=== PATIENT | male | born 1940 | race Caucasian/White ===

== ENCOUNTER → 2018-03-09 | Outpatient (CLI) | payer MEDICARE, OTHER ==
--- NOTE | 2018-03-10 08:42 | Diagnostic Imaging Report ---
ADDENDUM #1 Comparison MRI lumbar spine 05/23/2015. IMPRESSION: Moderate to severe canal stenosis and moderate left foraminal narrowing at L3-L4 secondary to degenerative changes and posterior epidural lipomatosis, mildly progressed. Moderate degenerative canal stenosis and moderate bilateral foraminal narrowing at L1-L2. Posterior epidural lipomatosis at this levels contribute to the canal stenosis, mildly progressed. Moderate degenerative canal stenosis and moderate left foraminal narrowing at L4-L5, stable. Diffuse disc degeneration throughout the lumbar spine and lower thoracic spine. Other degenerative changes as described above. Signed by: DR Guero Pope M.D. on 03/10/2018 9:08 AM ORIGINAL REPORT History: Low back pain Comparison studies: None Technique: Sagittal, coronal and axial T2 , sagittal T1 and IR, axial spin density oblique. Intravenous contrast: None Findings: Number of lumbar vertebral bodies:5. Transitional vertebra at the lower lumbar spine. Alignment: Straightening of the lumbar spine lordosis. Mild grade 1 anterolisthesis of L4 over L5.Mild dextroscoliosis centered at L3. Soft tissues: No T2 hyperintense inflammatory changes. Paraspinal muscles: Mild fatty infiltration of the paraspinal musculature secondary to atrophy. Lower thoracic cord:Normal in signal and morphology. The tip of the conus is at L1. Cauda equina: No masses. No arachnoiditis. Vertebrae: Normal in height and signal intensity. No compression fractures, infection or neoplasm. Degenerative changes: L1-L2: Disc degeneration with loss of T2 signal and decreased intervertebral space. Endplate irregularities with minimal edema signal. Mild diffuse disc bulge, posterior epidural lipomatosis, mild facet hypertrophy and ligamentum flavum thickening results in moderate canal stenosis and moderate bilateral foraminal narrowing. L2-L3: Disc degeneration with loss of T2 signal. Diffuse disc bulge, mild facet hypertrophy and ligamentum flavum thickening results in mild canal stenosis and mild bilateral foraminal narrowing. L3-L4: Disc degeneration with loss of T2 signal and decreased intervertebral space. Small central annular fissure. Diffuse disc bulge, posterior epidural lipomatosis, moderate facet hypertrophy and ligamentum flavum thickening results in moderate to severe canal stenosis, moderate left and mild right foraminal narrowing. Trace of fluid of the bilateral facet joints secondary to synovitis. L4-L5: Disc degeneration with loss of T2 signal and decreased intervertebral space. Diffuse disc bulge, moderate facet hypertrophy and ligamentum flavum thickening results in moderate canal stenosis, narrowing of the bilateral subarticular recesses, mild right and moderate left foraminal narrowing. L5-S1: Fused intervertebral disc. Mild facet hypertrophy with patent canal and foramina. Additional findings: None IMPRESSION: Moderate to severe canal stenosis and moderate left foraminal narrowing at L3-L4 secondary to degenerative changes and posterior epidural lipomatosis. Moderate degenerative canal stenosis and moderate bilateral foraminal narrowing at L1-L2. Posterior epidural lipomatosis at this levels contribute to the canal stenosis. Moderate degenerative canal stenosis and moderate left foraminal narrowing at L4-L5. Diffuse disc degeneration and other degenerative changes as described above. Signed by: DR Guero Pope M.D. on 03/10/2018 8:38 AM
--- NOTE | 2018-03-10 09:01 | Diagnostic Imaging Report ---
History: Neck pain Comparison studies: MRI of the cervical spine 11/07/2016, 05/23/2015 and 06/15/2014 Technique: Sagittal T1, T2 and IR, axial T2 and axial gradient echo Intravenous contrast: None Findings: Alignment: Reversal the usual cervical lordotic curvature centered at C4-C5, unchanged. Cervicomedullary junction: No abnormalities. Patent foramen magnum. Soft tissues: No T2 hyperintense inflammatory changes. Spinal cord: Normal in size and signal from the foramen magnum through T3 Vertebrae: No fractures, infection or neoplasm. Degenerative changes: C2-C3: Mildly degenerated disc with loss of T2 signal. Left uncinate process hypertrophy and facet hypertrophy results in no significant canal stenosis and mild left foraminal narrowing, stable. C3-C4: Disc degeneration with decreased intervertebral space. Diffuse disc osteophyte complex, bilateral uncinate process hypertrophy and facet hypertrophy results in mild canal stenosis and moderate bilateral foraminal narrowing, stable. C4-C5: Disc degeneration with decreased intervertebral space. Diffuse disc osteophyte complex, ligamentum flavum thickening, uncinate process hypertrophy and facet hypertrophy results in moderate canal stenosis, severe right and moderate left foraminal narrowing, stable from previous examination. C5-C6: The disc space is fused. Patent canal. Severe right and moderate left foraminal stenosis due to uncovertebral facet arthrosis, stable. C6-C7: Disc degeneration with decreased intervertebral space. Diffuse disc osteophyte complex, bilateral uncinate process hypertrophy and facet hypertrophy results in mild canal stenosis and moderate bilateral foraminal, stable. C7-T1: No abnormalities. IMPRESSION: 1. No significant change compared to previous MRI cervical spine 04/09/2017. 2. Moderate degenerative bilateral foraminal narrowing at C3-4 and C6-7, stable. 3. Moderate degenerative canal stenosis, severe right and moderate left foraminal narrowing at C4-5, stable. 4. Diffuse disc degeneration and other degenerative changes, stable from previous. Signed by: DR Guero Pope M.D. on 03/10/2018 8:57 AM
== END ==
LOC: MRI 15:29
PROVIDERS: ATTEND Emergency Medicine
DX: M54.12 Radiculopathy, cervical region (principal); M54.16 Radiculopathy, lumbar region
CPT/HCPCS: 72141; 72148

== ENCOUNTER → 2019-08-04 | Outpatient (CLI) | payer MEDICARE, OTHER ==
--- NOTE | 2019-08-04 16:23 | Diagnostic Imaging Report ---
TECHNIQUE: Magnetic resonance imaging of the LEFT ANKLE was performed WITHOUT injected contrast. COMPARISON: None available. HISTORY: Ankle pain FINDINGS: Alignment: Hindfoot valgus with pes planus and forefoot abduction. Subfibular impingement. LIGAMENTS: Medial Complex: Intact Lateral Complex: Intact TENDONS: Medial: Tendinopathy of the posterior tibial tendon. Flexor tendons otherwise intact. Lateral: Peroneal tenosynovitis. Tendons intact. Anterior: Anterior tibial and extensor tendons intact. Achilles: Achilles tendon intact. BONES: No acute fracture or osteonecrosis. JOINTS: Cartilage: Subchondral cystic change of the ankle, subtalar, and talonavicular joints. Other: Fluid within the joints is within physiologic limits. SOFT TISSUES: Otherwise, unremarkable. 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 Posterior tibial tendinopathy. Signed by: Dr. Edouard Olivo M.D. on 08/04/2019 4:19 PM
== END ==
LOC: MRI 14:48
PROVIDERS: ATTEND Emergency Medicine
DX: M25.572 Pain in left ankle and joints of left foot (principal)

== ENCOUNTER → 2021-03-21 | Outpatient (CLI) | payer MEDICARE, OTHER ==
[~2021-03-21] MED LIST: IOPAMIDOL 370 MG/ML 200 ML INFUS..BTL INJ ONE; SODIUM CHLORIDE 0.9% 500ML 500 ML ONE; SODIUM CHLORIDE 0.9% 50ML 50 ML ONE
[2021-03-21 17:07] LABS: CREATININE, SERUM 1.44 mg/dL (0.72-1.25)
== END ==
LOC: CT 16:22
PROVIDERS: ATTEND Emergency Medicine
DX: R10.9 Unspecified abdominal pain (principal)
CPT/HCPCS: 36415; 74177; 82565; 84520; 96360; J7040; Q9967

== ENCOUNTER → 2022-02-22 | Outpatient (CLI) | payer MEDICARE, OTHER | LOC: MRI 14:39 | PROVIDERS: ATTEND Obstetrics & Gynecology Reproductive Endocrinology | DX: M54.16 Radiculopathy, lumbar region (principal) | CPT/HCPCS: 72148 ==

== ENCOUNTER → 2022-08-22 | Day surgery (SDC) | payer MEDICARE, OTHER ==
[2022-08-21 15:30] LABS: BASOPHILS % 0.6 % (0.0-1.0); EOSINOPHILS # (AUTO) 0.5 (0.0-0.4); EOSINOPHILS % 7.1 % (0.0-6.0); HEMATOCRIT 37.4 % (38.2-49.6); HEMOGLOBIN 12.3 g/dL (14.0-18.0); LYMPHOCYTES # (AUTO) 2.3 (1.0-3.2); LYMPHOCYTES % 33.3 % (18.0-39.1); MEAN CORPUSCULAR HEMOGLOBIN 34.2 pg (28-32); MEAN CORPUSCULAR HGB CONC 32.9 g/dL (31-35); MEAN CORPUSCULAR VOLUME 103.9 fL (81-99); MONOCYTES # (AUTO) 0.8 (0.2-0.8); MONOCYTES % 11.7 % (4.4-11.3); NEUTROPHILS # (AUTO) 3.3 (2.1-6.9); NEUTROPHILS % 46.9 % (38.7-80.0); PLATELET COUNT 212 x10e3/uL (140-360); RED CELL DISTRIBUTION WIDTH 12.7 % (11.7-14.4)
[2022-08-21 15:41] LABS: INR 0.86; PROTHROMBIN TIME 12.5 seconds (11.9-14.5)
[2022-08-21 15:42] LABS: PARTIAL THROMBOPLASTIN TIME 25.7 seconds (23.8-35.5)
[2022-08-21 15:49] LABS: ANION GAP 15.4 mmol/L (8-16); CALCIUM 8.9 mg/dL (8.4-10.2); CREATININE, SERUM 1.32 mg/dL (0.72-1.25); POTASSIUM 4.4 mmol/L (3.5-5.1)
[~2022-08-22] MED LIST changes: +ALLOPURINOL100 MG PO; +ASPIRIN81 MG PO; +ATORVASTATIN CA20 MG PO; +BUPIVACAINE HCL 0.5% INJ 30 ML VIAL INJ ONE; +FAMOTIDINE40 MG PO; +FINASTERIDE5 MG PO; +FLOMAX0.4 MG PO; +HYDROCODON-ACE1 EA12 PO; -IOPAMIDOL 370 MG/ML 200 ML INFUS..BTL INJ ONE; +ISOSORBIDE MONO30 MG PO; +KLOR-CON M2020 MEQ PO; +LEVOTHYROXINE75 MCG PO; +LIDOCAINE HCL 2% LOCAL INJ 5 ML SDV VIAL INJ ONE; +LYRICA75 MG PO; +MELOXICAM7.5 MG PO; +METOPROLOL TART25 MG PO; +POVIDONE IODINE 0.05% 0.05 % ML PO ONE; +PROPOFOL IV EMULSION 10 MG/ML 20 ML VIAL IV ONE; +SEVOFLURANE INHAL SOLN 250 ML PEN BTL INH ONE; -SODIUM CHLORIDE 0.9% 500ML 500 ML ONE; -SODIUM CHLORIDE 0.9% 50ML 50 ML ONE; +TIZANIDINE HCL2 MG PO
[2022-08-22 09:55] VITALS: BP 126/64
== END | disposition home or self-care (01) ==
LOC: OR 07:09
PROVIDERS: ATTEND Neurological Surgery
DX: G56.01 Carpal tunnel syndrome, right upper limb (principal); I10 Essential (primary) hypertension; I25.10 Atherosclerotic heart disease of native coronary artery without angina pectoris; N40.0 Benign prostatic hyperplasia without lower urinary tract symptoms; E11.9 Type 2 diabetes mellitus without complications; R00.1 Bradycardia, unspecified; E03.9 Hypothyroidism, unspecified; M19.90 Unspecified osteoarthritis, unspecified site; Z71.3 Dietary counseling and surveillance; Z71.82 Exercise counseling; Z01.810 Encounter for preprocedural cardiovascular examination; Z01.812 Encounter for preprocedural laboratory examination; Z01.818 Encounter for other preprocedural examination; Z79.02 Long term (current) use of antithrombotics/antiplatelets; Z79.82 Long term (current) use of aspirin; Z79.1 Long term (current) use of non-steroidal anti-inflammatories (NSAID); Z79.899 Other long term (current) drug therapy; Z68.37 Body mass index [BMI] 37.0-37.9, adult; Z86.718 Personal history of other venous thrombosis and embolism
CPT/HCPCS: 36415; 64721; 71046; 80048; 85025; 85610; 85730; 93005; J0690; J2001; J2704

== ENCOUNTER → 2023-01-14 | Outpatient (CLI) | payer MEDICARE, OTHER ==
[~2023-01-14] MED LIST changes: -BUPIVACAINE HCL 0.5% INJ 30 ML VIAL INJ ONE; -LIDOCAINE HCL 2% LOCAL INJ 5 ML SDV VIAL INJ ONE; -POVIDONE IODINE 0.05% 0.05 % ML PO ONE; -PROPOFOL IV EMULSION 10 MG/ML 20 ML VIAL IV ONE; -SEVOFLURANE INHAL SOLN 250 ML PEN BTL INH ONE
== END ==
LOC: MRI 10:16
PROVIDERS: ATTEND Emergency Medicine
DX: M17.11 Unilateral primary osteoarthritis, right knee (principal); M54.16 Radiculopathy, lumbar region
CPT/HCPCS: 72148

== ENCOUNTER → 2024-05-28 | Outpatient (REF) | payer MEDICARE | LOC: RAD 13:40 | PROVIDERS: ATTEND Emergency Medicine | DX: M79.604 Pain in right leg (principal); R60.9 Edema, unspecified | CPT/HCPCS: 93971 ==